=== PATIENT | female | born 1990 | race African-American/Black ===

== ENCOUNTER 2025-05-16 10:30 | Outpatient (AMB) | payer BC, SELFPAY ==
--- NOTE | 2025-05-16 10:33 | MHC.PC.OV ---
Vital Signs 05/16/25 10:42 Height 4 ft 11.37 in Weight 147 lb 2 oz BMI 29.3 BP 113/57 L Blood Pressure Location Lt brachial Position Sitting Pulse 75 Pulse Source Pulse Oximeter Temp 98.5 F Temp Source Oral Pulse Oximetry (%) 99 Intake Visit Reasons: Diabites/cholesterol Intake Note: discuss eczema on hands Accompanied by: Self / Same As Patient Allergies acetaminophen (From Percocet) Allergy (Severe, Verified 05/16/25 10:39) Vomiting oxycodone (From Percocet) Allergy (Severe, Verified 05/16/25 10:39) Vomiting Tobacco use date assessed: 05/16/25 Dental Screening Dental Screen Date: 05/16/25 Did you have a dental visit in the last 12 months?: Yes HPI HPI Comments History of Present Illness Details History of Present Illness The patient is a 35 year old female presenting for an annual physical examination and to establish care. Health Maintenance: The patient has not had a physical exam in a very long time and desires a comprehensive lab panel to assess her overall health. She follows up with her respiratory support technician annually and confirms her Pap smear is up to date. Eczema: The patient has a lifelong history of eczema, which is currently exacerbated by the winter weather. She uses triamcinolone cream, which she finds effective. She has no history of asthma or allergies. Onychomycosis: The patient's disposition clerk noted that her middle toenail is darker than the others, suggesting a possible fungal infection. The patient reports a history of trauma to that toe, having broken it many years ago. Constipation: The patient reports being irregular with her bowel movements, sometimes going three days without one. She considers this her normal pattern and reports having gas but no constipation. Insomnia: The patient reports a lifelong history of poor sleep, describing herself as a light sleeper who hears everything and does not stay asleep. She snores at times but denies waking up gasping for air. She does not feel refreshed upon waking but does not feel overly tired during the day. Surgical History: - section (x3) - ACL repair, left knee - Myomectomy Medications: - Triamcinolone cream for eczema Social History: - Tobacco Use: Denies smoking. - Alcohol Use: Denies drinking. - Substance Use: Denies illicit drug use. 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 - Exercise: She reports going to the gym. - Sexual History: The patient is sexually active. Family History: - Denies any family history of cancer. - Mother has a history of irritable bowel syndrome (IBS). Past Medical History - Eczema, since childhood - History of middle toe fracture - Denies any other medical history, including diabetes. - No history of hospital admissions. Health Maintenance - The patient presents for a wellness exam and comprehensive lab work. - Pap smear is up to date per her annual gynecological visits. - Labs ordered include: complete blood count, comprehensive metabolic panel, magnesium, thyroid panel, vitamin B12, folate, vitamin D, hepatitis B, hepatitis C, HIV, syphilis, hemoglobin A1c, and a lipid panel. - A urine screen for chlamydia and gonorrhea was also added. - The patient was counseled on increasing dietary fiber for constipation by eating prunes. [facility] Medical History (Updated 05/16/25 @ 13:18 by Conrado Rhodes MD) Insomnia Constipation Onychomycosis Eczema Surgical History (Updated 05/16/25 @ 10:41 by Stephanie Aden CMA) Previous section H/O myomectomy S/P ACL reconstruction Family History (Updated 05/16/25 @ 10:42 by Stephanie Aden CMA) Mother Diabetes HTN (hypertension) Father No problems noted. Social History (Updated 05/16/25 @ 10:34 by Stephanie Aden CMA) Housing: House Alcohol intake: current Patient Tobacco Use Status: Never used Tobacco Tobacco use type: Smokeless Tobacco e-Cigarette/Vaping Use: Never Used service: No Current occupational status: employed Cognitive needs: No Hearing needs: No Vision needs: No Questionnaire PHQ-9 Over the last 2 weeks, how often have you been bothered by any of the following problems? 1. Little interest or pleasure in doing things: not at all 2. Feeling down, depressed, or hopeless: not at all 3. Trouble falling or staying asleep, or sleeping too much: not at all 4. Feeling tired or having little energy: not at all 5. Poor appetite or overeating: not at all 6. Feeling bad about yourself - or that you are a failure or have let yourself or your family down: not at all 7. Trouble concentrating on things, such as reading the newspaper or watching television: not at all 8. Moving or speaking so slowly that other people could have noticed. Or the opposite - being so fidgety or restless that you have been moving around a lot more than usual: not at all 9. Thoughts that you would be better off or of hurting yourself in some way: not at all Total score: 0 Depression Screening Interpretation: Negative Depression Screening Done: Yes Source: Developed by Drs. Timur Lara, Estrella Leyva, Joni Benavidez and colleagues, with an educational bhavani from [employer]. Thrive Questionnaire Date Thrive assessed: 05/16/25 I am a: Patient What is your living situation today?: I have a steady place to live Within the past 12 months, did the food you bought not last and you didn't have the money to get more?: Often true Within the past 12 months, did you worry whether your food would run out before you got money to buy more?: I choose not to answer this question Do you have trouble paying for medicines?: No Do you have trouble getting transportation to medical appointments?: No Do you have trouble paying your heating and electricity bill?: No Do you have trouble taking care of your child, family member or friend?: No Do you have trouble with day-to-day activities such as bathing, preparing meals, shopping, managing finances, etc.?: No Are you currently unemployed and looking for a job?: No Are you interested in more education?: Yes Please select the resources that you would like help with: None Currently or been in a relationship where the following occur: No concerns reported THRIVE Score: 1 AUDIT C Alcohol Use Questionnaire (AUDIT-C) 1. How often do you have a drink containing alcohol?: Monthly or less 2. How many drinks containing alcohol do you have on a typical day when you are drinking?: 1 or 2 3. How often do you have six or more drinks on one occasion?: Never Total Score: 1 PAUL-7 AMB Questionnaire PAUL-7 Feeling nervous, anxious, or on edge: 0 = Not at all Not being able to stop or control worryin = Not at all Worrying too much about different things: 0 = Not at all Trouble relaxin = Not at all Being so restless that it is hard to sit still: 0 = Not at all Becoming easily annoyed or irritable: 0 = Not at all Feeling afraid as if something awful might happen: 0 = Not at all Total PAUL-7 score (0-4 normal; 5-9 mild; 10-14 moderate; 15-21 severe): 0 Source: Developed by Drs. Timur Lara, Estrella Leyva, Joni Benavidez and colleagues, with an educational bhavani from [employer]. Review of Systems Narrative Review of Systems - Constitutional: Denies feeling overly tired. - Dermatologic: Reports a lifelong history of eczema, which has been triggered this winter. - Respiratory: Denies asthma. - Gastrointestinal: Reports irregular bowel movements, sometimes going 3 days between movements, which is her norm. - Neurological: Reports poor sleep quality and being a light sleeper. - Allergic/Immunologic: Denies seasonal allergies. 10-point ROS reviewed and negative except as noted in HPI Physical exam (Primary Care) Vital Signs: Last Vital Signs Temp 98.5 F 05/16/25 10:42 Pulse 75 05/16/25 10:42 BP 113/57 L 05/16/25 10:42 Pulse Ox 99 05/16/25 10:42 BMI result Body Mass Index 29.3 Tobacco/Smoking Status: Tobacco use Status Tobacco use date assessed 05/16/25 05/16/25 10:34 Patient Tobacco Use Status Never used Tobacco 05/16/25 10:34 Tobacco use type Smokeless Tobacco 05/16/25 10:43 e-Cigarette/Vaping Use Never Used 05/16/25 10:34 PHQ-9: PHQ-9 Score PHQ-9: Total score 0 05/16/25 10:34 Depression Screening Interpretation: Negative Thrive Assessment: Date of Thrive Assessment Date Thrive assessed 05/16/25 05/16/25 10:34 Currently or been in a relationship where the following occur: No concerns reported Narrative Physical Exam General: Well-appearing, in no acute distress. Vital signs: Within normal limits. HEENT: Normocephalic, atraumatic. PERRLA, EOMI. Conjunctiva clear, sclera anicteric. Oropharynx clear, mucous membranes moist. TMs intact bilaterally. Neck: Supple, no lymphadenopathy, no thyromegaly, no JVD or carotid bruits. Cardiovascular: RRR, normal S1/S2, no murmurs, rubs, or gallops. Peripheral pulses 2+ and symmetric. No edema. Respiratory: Lungs clear to auscultation bilaterally, no wheezes, rales, or rhonchi. Normal effort. Abdomen: Soft, non-tender, non-distended. Normoactive bowel sounds. No hepatosplenomegaly, no masses. MSK: Full range of motion, no joint swelling or deformity. Normal gait. History of ACL repair to the left knee. Skin: Warm, dry, intact. No rashes, lesions, or pallor. Eczema present, managed with triamcinolone. Neuro: Alert and oriented x3. Cranial nerves II-XII intact. Strength 5/5 throughout. Sensation intact. Reflexes 2+ symmetric. Normal coordination and gait. Psych: Appropriate mood and affect. Normal judgment and insight. Reports poor sleep quality, light sleeper, does not feel refreshed upon waking. Office Procedures Flu Questionnaire Does the patient have a severe egg allergy?: No Does the patient have severe life threatening allergies?: No Does the patient have a fever or illness today?: No Has the patient ever had Guillain-Neche Syndrome?: No Has the patient ever had any past reaction to a flu shot?: No Immunizations Fluarix [id number] (PF) 45 mcg (15 mcg x 3)/0.5 mL IM syringe Performing Provider: Conrado Rhodes MD Performing Location: [facility] Documented (not given) by: Stephanie Aden CMA on 05/16/25 10:44 Reason Not Given: Patient Refused Coding Level of Care Code New Pt Level 4 (01114) Add On Problem Visit Only Diagnoses Eczema L30.9 Onychomycosis B35.1 Constipation K59.00 Insomnia G47.00 Assessment & Plan Assessment & Plan (1) Eczema: Code(s): L30.9 - Dermatitis, unspecified Category: Medical (2) Onychomycosis: Code(s): B35.1 - Tinea unguium Category: Medical (3) Constipation: Code(s): K59.00 - Constipation, unspecified Category: Medical (4) Insomnia: Code(s): G47.00 - Insomnia, unspecified Category: Medical Plan Consent The risks, benefits, and alternatives for treating a suspected toenail fungus were discussed. It was explained that oral medication is more effective than topical treatment but can cause an elevation in liver enzymes. The patient was informed of the need for baseline and mid-treatment lab monitoring of her liver function if an oral medication is initiated. The patient verbally consented to the plan to start with topical therapy and proceed with lab work. Patient was informed and verbally consented to the use of an ambient scribe for clinic note documentation during this visit. Plan 1. Eczema - A prescription for triamcinolone was sent to the patient's pharmacy. 2. Onychomycosis - Prescribed topical ciclopirox lacquer for nightly application to the affected toenail. - Discussed that oral medication may be necessary depending on the results of her baseline labs, specifically liver function tests. - If an oral antifungal is started, it will be a three-month treatment with monitoring of liver function tests. 3. Constipation - Advised the patient to try eating three prunes daily to increase fiber intake and improve bowel regularity. 4. Insomnia - The patient's report of poor sleep is noted. - No immediate intervention was initiated; will monitor. Discussion Notes I discussed with the patient the plan for a comprehensive wellness visit, which includes a full battery of screening labs. For her eczema, I will send a prescription for triamcinolone. Regarding the discolored toenail, which is suspicious for a fungal infection, I explained that topical treatments are often not effective, but we will start with Ciclopirox nail lacquer. I informed her that oral medication is the more effective treatment but carries a risk of elevating liver enzymes, which is why we need to check baseline labs before considering it; this would be a three-month treatment course with repeat labs intermediate through. For her complaint of irregular bowel movements, I recommended a dietary change of eating prunes daily. The patient understood and agreed to the plan, including a follow-up visit in two weeks to review all results. Patient Instructions - Go to the lab next door to have your blood drawn for the tests we discussed. - You do not need to fast for these labs. - tool supervisor your prescriptions for triamcinolone cream and ciclopirox solution from your pharmacy. - Apply the ciclopirox solution, which is like a lacquer, to the affected toenail every night. - Try eating three prunes a day to help with bowel regularity. - Please return for a follow-up appointment in two weeks to go over your lab results. Medical Decision Making The patient is a 35-year-old female presenting to establish care and for a general wellness check, having not had a physical in a long time. Given her desire for a comprehensive health assessment, a full panel of screening labs was ordered to establish a baseline and screen for common conditions. The patient's lifelong eczema is well-managed with topical triamcinolone, so a refill was provided. Her discolored middle toenail is suspicious for onychomycosis, despite a history of trauma to the digit. The decision was made to initiate treatment with topical ciclopirox lacquer while awaiting baseline lab results, as oral antifungals, while more effective, carry a risk of hepatotoxicity and require liver function monitoring. Her report of constipation, which she describes as her norm, will be addressed initially with conservative dietary modification, specifically the addition of prunes for fiber. Her poor sleep quality was noted, but as she denies red flag symptoms for severe sleep apnea like gasping for air, no further workup is indicated at this time. A follow-up in two weeks will allow for a review of all diagnostic results and further refinement of the treatment plan. Total Time Statement 30 min Total time spent caring for the patient today includes pre-visit chart review, documentation, review of laboratory and diagnostic imaging results, medication reconciliation, medically necessary evaluation, counseling on diagnoses, care coordination, ordering appropriate tests and medications, review of tests performed by other providers, reporting test results to the patient, and communication with other healthcare providers. Orders: Orders Influenza [id number] Immunization Today Z23 - Encounter for immunization Vitamin D 25-OH (D2 and D3) Today Z13.9 - Encounter for screening, unspecified Complete Blood Count Auto Diff Today Z13.9 - Encounter for screening, unspecified Comprehensive Met. Panel Today Z13.9 - Encounter for screening, unspecified TSH reflex Free T4 Today Z13.9 - Encounter for screening, unspecified HIV Ab/Ag Today Z13.9 - Encounter for screening, unspecified Lipid Panel Today Z13.9 - Encounter for screening, unspecified Hemoglobin A1c Today Z13.9 - Encounter for screening, unspecified Magnesium Today Z13.9 - Encounter for screening, unspecified Hepatitis B Surface Antibody Today Z13.9 - Encounter for screening, unspecified AMB Hemoglobin A1c Today Z13.9 - Encounter for screening, unspecified Microalbumin, Random (w Creat) Today Z13.9 - Encounter for screening, unspecified Hepatitis B Surface Antigen Today Z13.9 - Encounter for screening, unspecified Syphilis Screen Today Z13.9 - Encounter for screening, unspecified Hepatitis C Antibody Today Z13.9 - Encounter for screening, unspecified CT NG by PCR Urine Today Z13.9 - Encounter for screening, unspecified UA CC w/rflx Micro + Cult Today Z13.9 - Encounter for screening, unspecified Vitamin B12 and Folate Today Z13.9 - Encounter for screening, unspecified Medications: New ciclopirox 8% 1 appl topical BEDTIME 6.6 mL 0RF 4 weeks triamcinolone acetonide 0.1% 1 appl topical DAILY 80 grams 0RF
[2025-05-16 10:42] VITALS: BP 113/57; PULSE 75; TEMP 36.9; O2SAT 99; BMI 29.3
== END 2025-05-16 10:59 | disposition home or self-care (01) ==
LOC: HO.HMCFMS 10:31
PROVIDERS: Visit Provider Student in an Organized Health Care Education/Training Program
DX: L30.9 Dermatitis, unspecified (principal); B35.1 Tinea unguium; K59.00 Constipation, unspecified; G47.00 Insomnia, unspecified; Z23 Encounter for immunization

== ENCOUNTER 2025-05-16 10:30 | Outpatient (REF) | payer OTHER, SELFPAY ==
--- OUTSIDE RECORDS SUMMARY | 2025-05-10 23:59 | XMS_ITS | Continuity of Care Document ---
Author Organization [facility] Address [address] [place] [phone]- Care Team Providers Care Magazine Hand Name Role Phone Not on Staff, PCP Primary Care Physician Unavail able [facility]): 04[facility]/25 - 05/10/[facility] [address] [address]- Encounter Type: Triage Allergies, Adverse Reactions, Alerts Substance Criticality Severity Reaction Reaction Severity Status Percocet hives Activ e Problem List Condition Confirmation Course Effective Dates Status Health St atus Informant Endometriosis Confirmed Active HSV infection Confirmed Active Rh negative Confirmed Active Uterine fibroid Confirmed Active Social History Social History Type Response Sex Sex Representation Female (finding) Patient Care team information Care Team Personnel Name: Not on Staff, PCP Position: S Physician (General Medicine) Member Role: PCP Care Team Related Persons Name: MELISSA CEE Name: CEEKIAH Name: VAN GUSTAFSON Insurance Providers Guarantor name: ZHEN CEE Health Plan Information #: 1 Payer: BLUE [employer] BBA PPO Payer Identifier: NA Member Number: [id number] Group Number: [id number] Subscriber Identifier: NA Relationship to Subscriber: self Coverage Type: BLUE CROSS/BLUE SHIELD Coverage Verification Date: NA Telecom: NA Address: NA
--- OUTSIDE RECORDS SUMMARY | 2025-05-13 23:59 | XMS_ITS | Continuity of Care Document ---
Author Organization [facility] Address [address] [place] [phone]- Care Team Providers Care Pot Press Operator Name Role Phone Not on Staff, PCP Primary Care Physician Unavail able [facility](s): 04/13/25 - 05/13/25 [facility] [address] [address]- Encounter Type: Triage Allergies, Adverse Reactions, Alerts [...] Team Related Persons Name: MELISSA CEE Name: JAYEKIAH Name: VAN GUSTAFSON Insurance Providers Guarantor name: ZHEN CEE Health Plan Information #: 1 Payer: BLUE [employer] BBA PPO Payer Identifier: NA Member Number: [id number] Group Number: [id number] Subscriber Identifier: NA Relationship to Subscriber: self Coverage Type: BLUE CROSS/BLUE SHIELD Coverage Verification Date: NA Telecom: NA Address: NA
--- OUTSIDE RECORDS SUMMARY | 2025-05-13 23:59 | XMS_ITS | Continuity of Care Document ---
Author Organization [facility] Address [address] [place] [phone]- Care Team Providers Care Color Shop Helper Name Role Phone Not on Staff, PCP Primary Care Physician Unavail able [facility]): 04/13/25 - 05/13/25 [facility] [address] [address]- Encounter Type: Triage Allergies, Adverse Reactions, Alerts [...] Health Plan Information #: 1 Payer: BLUE [employer] BBA PPO Payer Identifier: NA Member Number: [id number] Group Number: [id number] Subscriber Identifier: NA Relationship to Subscriber: self Coverage Type: BLUE CROSS/BLUE SHIELD Coverage Verification Date: NA Telecom: NA Address: NA
--- OUTSIDE RECORDS SUMMARY | 2025-05-14 23:59 | XMS_ITS | Continuity of Care Document ---
Author Organization [facility] Address [address] [place] [phone]- Care Team Providers Care Field Clerk Name Role Phone Not on Staff, PCP Primary Care Physician Unavail able [facility]counter [facility] Date(s): 04/14/25 - 05/14/25 [facility] [address] [address]- Encounter Type: Triage Allergies, Adverse Reactions, Alerts [...] BBA PPO Payer Identifier: NA Member Number: [id number] Group Number: [id number] Subscriber Identifier: NA Relationship to Subscriber: self Coverage Type: BLUE CROSS/BLUE SHIELD Coverage Verification Date: NA Telecom: NA Address: NA
[2025-05-16 15:12] LABS: Appearance Urine Hazy; Glucose Urine UA Negative (Negative); PH 6.0 (5.0-9.0); Specific Gravity - Urine 1.025 (1.005-1.025); UMIC TRIGGER UACC YES
[2025-05-16 15:39] LABS: Hematocrit 30.7 % (37.0-47.0); Hemoglobin 9.1 g/dl (12.0-16.0); Mean Corpuscular HGB Conc 29.6 g/dl (31.0-35.0); Mean Corpuscular Hemoglobin 21.8 pg (27.0-33.0); Mean Corpuscular Volume 73.6 fL (80.0-98.0); NRBC Abs Auto 0.000 X10*3/uL (0.0-0.012); NRBC Pct Auto 0.0 /100WBC (0.0-0.2); PLT CLUMP 1; Red Blood Count 4.17 X10*6/uL (4.20-5.50)
[2025-05-16 15:54] LABS: Alanine Aminotransferase 16 U/L (0-31); Albumin Level 4.3 g/dL (3.5-5.0); Alkaline Phosphatase 57 U/L (39-117); Anion Gap 11 (12-20); Aspartate Amino Transferase 25 U/L (5-31); Blood Urea Nitrogen 9 mg/dL (9-16); Calcium 8.8 mg/dL (8.4-10.2); Carbon Dioxide 21 mmol/L (22-29); Chloride 110 mmol/L (96-108); Cholesterol 186 mg/dL (<200); Estimated Glomerular Filt Rate > 60; HDL Cholesterol 53 mg/dL (>40); Magnesium 2.1 mg/dL (1.6-2.6); Potassium 3.8 mmol/L (3.3-5.1); Sodium 138 mmol/L (135-145); Total Protein 7.1 g/dL (6.5-8.0); Triglycerides 65 mg/dL (<150)
[2025-05-16 16:23] LABS: Band Neutrophils Percent 0 % (3-5); Lymphocytes Percent Manual 29 % (20-40); Monocytes Percent Manual 1 % (2-11); Neutrophils Percent Manual 70 % (45-73)
[2025-05-16 16:24] LABS: RBC Morphology NOTED
[2025-05-16 16:25] LABS: Folate 11.3 ng/mL (> or = 4.0); Large Platelet PRESENT; Microcytosis 1+ (5-14) /OIF; Ovalocytes 1+ (5-14) /OIF; Vitamin B12 706 pg/mL (200-900)
[2025-05-16 16:26] LABS: Hypochromasia 1+ (5-14) /OIF; Polychromasia 1+ (0-2) /OIF
[2025-05-16 16:27] LABS: Lymphocytes Absolute Manual 1.9 X10*3/uL (1.2-4.9); Monocytes Absolute Manual 0.1 X10*3/uL (0.1-1.2); Neutrophils Absolute Manual 4.7 X10*3/uL (2.0-8.3); Platelet Count 221 X10*3/uL (160-400); White Blood Count 6.7 X10*3/uL (4.8-10.8)
[2025-05-16 16:39] LABS: Microalbum/Creatinine Ratio Ur 2.9 ug/mg cr (<30)
[2025-05-17 01:49] LABS: CT PCR Urine NOT DETECTED (Not Detect.); NG PCR Urine NOT DETECTED (Not Detect.)
[2025-05-19 03:56] LABS: Syphilis Screen Nonreactive (Nonreactive)
[2025-05-19 04:18] LABS: HBS Num1 53.52 mIU/mL (0-7.99); HBsAGNum1 0.41 S/CO (0.00-0.99); HIV Num 1 0.06 S/CO (0.00-0.99); Hepatitis B Surface Antigen Negative (Negative); ~HepC Num1 0.67 S/CO (0.00-0.79); ~Hepatitis B Surface Antibody REACTIVE (Nonreactive); ~Hepatitis C Antibody Nonreactive (Nonreactive)
[2025-05-20 16:28] LABS: Vitamin D 25-OH, D2 <4 ng/mL; Vitamin D 25-OH, D3 31 ng/mL; Vitamin D 25-OH, Total 31 ng/mL (30-100)
== END 2025-05-16 10:31 | disposition home or self-care (01) ==
LOC: HO.HKASLDS 10:30
PROVIDERS: PCP Student in an Organized Health Care Education/Training Program; Visit Provider Student in an Organized Health Care Education/Training Program
DX: B35.1 Tinea unguium (principal); L30.9 Dermatitis, unspecified; K59.00 Constipation, unspecified; G47.00 Insomnia, unspecified; Z28.21 Immunization not carried out because of patient refusal; Z13.1 Encounter for screening for diabetes mellitus
CPT/HCPCS: 80053; 80061; 81001; 81003; 82043; 82306; 82570; 82607; 82746; 83036; 83735; 84443; 85007; 85025; 85027; 86706; 86780; 86803; 87340; 87389; 87491; 87591; 90471; 96127